=== PATIENT | male | born 1945 | race Native Hawaiian/Other Pacific Islander ===

== ENCOUNTER 2023-01-22 18:08 | Emergency (ER) | payer OTHER ==
[~2023-01-22] VITALS: Ht 175.3 cm; Wt 108.0 kg
[~2023-01-22 18:08] MED LIST: CEPH500C20 PO; DOXYCYCL HYC100 MG PO; METO5TAB38 PO
[2023-01-22 18:34] LABS: PLATELET COUNT 208 K/uL (142-355)
[2023-01-22 18:50] LABS: POTASSIUM 3.1 mmol/L (3.6-5.2)
[2023-01-22 21:24] VITALS: BP 114/75; TEMP 98.3
[2023-01-23] MEDS ORDERED: TYLENOL325 MG PO ×2 (06:58→06:59)
[2023-01-23] MEDS ORDERED: LIPITOR40 MG PO (07:00)
[2023-01-23] MEDS ORDERED: ASPIRIN 81 LOW81 MG PO (07:00)
[2023-01-23] MEDS ORDERED: GLYCERIN ADULT2 GM PR (07:02)
[2023-01-23] MEDS ORDERED: HUMULIN 70/30 K1 INJ SC (07:03)
[2023-01-23] MEDS ORDERED: FURO40TA93 PO (07:04)
[2023-01-23] MEDS ORDERED: INSULIN LI100 UNIT/1 SC (07:04)
[2023-01-23] MEDS ORDERED: MILK OF MA400 MG/5 M PO (07:05)
[2023-01-23] MEDS ORDERED: METOPROLOL TA37.5 MG PO (07:05)
[2023-01-23] MEDS ORDERED: POTASSIUM CHLO20 ME1 PO (07:06)
[2023-01-23] MEDS ORDERED: TAMS0.4C PO (07:06)
[2023-01-23] MEDS ORDERED: XARELTO20 MG PO (07:07)
== END 2023-01-22 21:24 | disposition still patient (30) ==
LOC: ED 18:08
PROVIDERS: Emergency Medicine
DX: R45.6 Violent behavior (principal); R45.1 Restlessness and agitation; E86.0 Dehydration; E87.6 Hypokalemia; E87.1 Hypo-osmolality and hyponatremia; L03.116 Cellulitis of left lower limb; L03.115 Cellulitis of right lower limb; I48.20 Chronic atrial fibrillation, unspecified; Z02.79 Encounter for issue of other medical certificate
CPT/HCPCS: 36415; 80053; 81000; 85027; 87086; 87088; 87635; 93005; 99283; U0003